=== PATIENT | male | born 1950 | race Caucasian/White ===

== ENCOUNTER 2024-05-20 06:46 | Emergency (ER) | payer MEDICARE, SELFPAY ==
[2024-05-20 06:51] VITALS: BP 137/84
[2024-05-20 06:57] VITALS: BMI 29.2
[2024-05-20 07:00] VITALS: BP 139/89
[2024-05-20 07:02] LABS: % Basophils 1.1 % (0-2); % Eosinophils 2.4 % (0-6); % Immature Granulocytes 0.4 % (0-0.5); % Lymphocytes 23.8 % (20.5-51.1); % Monocytes 8.6 % (1.7-9.3); % Neutrophils 63.7 % (42.2-75.2); Absolute Basophils 0.1 10^3/uL (0-0.2); Absolute Eosinophils 0.2 10^3/uL (0-0.7); Absolute Lymphocytes 1.7 10^3/uL (1.2-3.4); Absolute Monocytes 0.6 10^3/uL (0.1-0.6); Absolute Neutrophils 4.6 10^3/uL (1.4-6.5); Hematocrit 43.8 % (39.0-52.0); Hemoglobin 14.8 g/dL (13.0-18.0); Mean Corp Hgb Conc. 33.8 g/dL (33.0-37.0); Mean Corpuscular Hgb 30.2 pg (27.0-31.0); Mean Corpuscular Volume 89.4 fL (80.0-94.0); Mean Platelet Volume 10.2 fL (7.4-10.4); Nucleated Red Blood Cells % 0 % (-); Platelet Count 229 10^3/uL (130-400); Red Cell Dist. Width 12.8 % (11.5-14.5); White Blood Cell Count 7.2 10^3/uL (4.8-10.8)
[2024-05-20 07:17] LABS: ALT (SGPT) 34 U/L (0-50); AST (SGOT) 25 U/L (17-59); Albumin 4.2 g/dl (3.5-5.0); Alkaline Phosphatase 56 U/L (38-126); Blood Urea Nitrogen 22 mg/dl (9-20); Calcium 9.3 mg/dl (8.4-10.2); Carbon Dioxide 29 mmol/L (22-30); Chloride 102 mmol/L (98-107); Estimated Creatinine Clearance 71 ml/min; Glucose 100 mg/dl (70-99); Potassium 4.4 mmol/L (3.5-5.1); Sodium 139 mmol/L (135-145); Total Bilirubin 1.4 mg/dl (0.2-1.3); Total Protein 6.3 g/dl (6.3-8.2); eGFR > 60.00
[2024-05-20 07:26] LABS: Troponin I < 0.012 ng/ml
--- NOTE | 2024-05-20 07:43 | ED.GENMED ---
History of Present Illness
General
Chief Complaint: Chest Pain
Source: patient and spouse
Exam Limitations: none
Time Seen by Provider: 05/20/24 07:08
Nursing documentation reviewed up to this point in time: agreed with
History of Present Illness
History of Present Illness:
73-year-old male past medical history of paroxysmal A-fib status post ablation seen at [facility], asthma hyperlipidemia, GERD presenting to the emergency department today with concerns of left-sided chest discomfort scribed as a sharp pain rating
to the left shoulder. No associated shortness of breath nausea vomiting or diaphoresis. Symptom started last night around 11 PM roughly 8 hours prior to arrival to the emergency department. He tried to sleep it off woke up this morning roughly 1
hour prior to arrival with ongoing symptoms. Took an aspirin last night as well as this morning. Denies any history of coronary artery disease. Denies any recent trauma surgery immobilization, leg swelling, history of blood clots, estrogen
product usage.
Review of Systems
Review of Systems
Allergies reviewed?: Yes
All Other Systems: ROS reviewed and negative except as documented in HPI and ROS
Phy Exam
Physical Exam
Physical Exam:
GENERAL: Alert , in no apparent distress
EYE: pupils equal and reactive
NECK: Supple, no significant adenopathy.
ENT: o/p clr, mmm.
CARDIAC: Regular rate and rhythm .
LUNGS: Clear breath sounds bilaterally, no acute respiratory distress, no wheezes/rales/rhonchi
ABDOMEN: Soft, without focal tenderness, no r/g, no cvat
NEUROLOGICAL: Alert and oriented, no focal neuro deficits
SKIN: Warm and dry, skin intact.
MUSCULOSKELETAL: No edema, well perfused.
PSYCH: Normal and appropriate interaction.
Scores
Heart Score for Chest Pain Patients
STEMI patient?: No
History: Slightly or Non-Suspicious
ECG: Normal
Age: >/= 65 years
Risk Factors: >/= 3 Risk Factors or History of CAD
Troponin: </= Normal Limit
Heart Score for Chest Pain Patients: 4
Heart Score Risk: 20.3% MACE over next 6 weeks
Course
Orders/Labs/Results
Orders:
Orders
05/20/24 06:48
EKG [Electrocardiogram (*1)] Urgent
Reason for Study: Chest Pain
05/20/24 06:49
EKG- Treatment ONCE
05/20/24 06:54
Complete Blood Count/With Diff Urgent
Comprehensive Metabolic Panel Urgent
Troponin I Urgent
05/20/24 07:13
Chest [CR Chest - 2 Views ] Urgent
Comment:
Reason For Exam: chest p[ain
05/20/24 09:49
EKG [Electrocardiogram (*1)] Urgent
Reason for Study: Chest Pain
05/20/24 09:50
EKG- Treatment ONCE
05/20/24 09:59
Troponin I Urgent
Abnormal Lab Results
05/20/24
06:54
BUN 22 H mg/dl
(9-20)
Glucose 100 H mg/dl
(70-99)
Total Bilirubin 1.4 H mg/dl
(0.2-1.3)
05/20/24 06:54
05/20/24 06:54
Vital Signs
Initial and Last Documented VS:
Initial Vital Signs
Pulse Resp Pulse Ox
78 10 95
05/20/24 06:49 05/20/24 06:49 05/20/24 06:49
Last Documented Vital Signs
Temp Pulse Resp BP Pulse Ox
98.0 F 69 15 122/85 94
05/20/24 06:51 05/20/24 10:57 05/20/24 10:30 05/20/24 10:00 05/20/24 10:30
MDM/Problems Addressed
MDM/Problems Addressed:
73-year-old male presenting to the emergency department today with concerns of left-sided chest pain described as sharp rating to the left shoulder. Started last night ongoing this morning. Vital signs normal on arrival EKG normal labs
unremarkable troponin negative normal heart and lung examination chest x-ray without acute abnormalities. Troponin repeated and EKG repeated with no changes. No signs of emergent pathology at this time stable for outpatient follow-up. Return
precautions given.
*Critical Care Note
Total Time (30-74mins, 75-104mins- exclusive of procedures): Not Applicable
ED Attending Note
-
Portions of this chart may have been created with voice recognition software.� Occasional wrong word or��sound alike� substitutions may have occurred due to the inherent limitations of voice recognition software.
Discharge Plan
Departure
Patient Disposition: Home (Routine Discharge)
Date of Disposition: 05/20/24
Time of Disposition: 11:20
Patient with high blood pressure during this ER visit?: No
Condition: Good
Covid-19: Not Applicable
Discharge Problem:
Chest pain
Instructions: Chest Pain NON-[facility] [employer] Branch Manager Follow Up
Referrals:
Mylene Mata MD [Family Provider] -
Activity Restrictions/Additional Instructions:
You came to the emergency department today with concerns of chest discomfort. Here you had a very reassuring assessment. 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 Return for any worsening, new or concerning symptoms.
Interventions
Interventions:
*Risk Screen - Suicide Last Done: 05/20/24 07:08
*General Assessment Last Done: 05/20/24 06:59
*Neglect/Abuse Screening Last Done: 05/20/24 07:08
*ED COVID-19 Vaccine History Last Done: 05/20/24 06:59
ED- Cardiac Assessment Last Done: 05/20/24 07:07
Discharge Date and Time
Print Language: CHILEAN
[2024-05-20 08:00] VITALS: BP 121/90
[2024-05-20 09:00] VITALS: BP 128/85
[2024-05-20 10:00] VITALS: BP 122/85
[2024-05-20 10:34] LABS: Troponin I < 0.012 ng/ml
[2024-05-20 11:34] VITALS: BP 122/85
== END 2024-05-20 11:39 | disposition home or self-care (01) ==
LOC: EMR 06:46
PROVIDERS: Physician Assistant; EMERGENCY PHYSICIAN Student in an Organized Health Care Education/Training Program; FAMILY PHYSICIAN Internal Medicine
DX: R07.89 Other chest pain (principal); I48.0 Paroxysmal atrial fibrillation; K21.9 Gastro-esophageal reflux disease without esophagitis; E78.5 Hyperlipidemia, unspecified; J45.909 Unspecified asthma, uncomplicated
CPT/HCPCS: 99285; 71046; 80053; 84484; 85025; 93005